=== PATIENT | male | born 1985 | race Caucasian/White ===

== ENCOUNTER 2018-04-05 07:55 | Day surgery (SDC) | payer BC ==
[2018-04-05] MEDS ORDERED: NS 1000 ML 1,000 ML ONE (07:57)
[2018-04-05] MEDS ORDERED: DIPRIVAN VIAL 20 ML ONE (08:23)
[2018-04-05 08:56] VITALS: BP 118/69
== END 2018-04-05 09:01 | disposition home or self-care (01) ==
LOC: SURG1 07:55
PROVIDERS: ATTEND Surgery
PROC: 0DJ08ZZ Inspection of Upper Intestinal Tract, Via Natural or Artificial Opening Endoscopic (ICD-10-PCS; principal; 2018-04-05 07:30)
PROC: 0DBP8ZX Excision of Rectum, Via Natural or Artificial Opening Endoscopic, Diagnostic (ICD-10-PCS; principal; 2018-04-05 07:30)
PROC: 0DB68ZX Excision of Stomach, Via Natural or Artificial Opening Endoscopic, Diagnostic (ICD-10-PCS; principal; 2018-04-05 07:30)
DX: K44.9 Diaphragmatic hernia without obstruction or gangrene (principal); K21.9 Gastro-esophageal reflux disease without esophagitis; R10.84 Generalized abdominal pain; R07.89 Other chest pain; K29.60 Other gastritis without bleeding
CPT/HCPCS: A4217; J3490

== ENCOUNTER → 2018-04-10 | Outpatient (CLI) | payer BC ==
[2018-04-05 08:56] VITALS: BP 118/69
--- NOTE | 2018-04-10 20:58 | US ---
HISTORY: Bloating, heartburn Study: Gallbladder ultrasound Comparison: None Technique: Multiple ho scale and color flow Doppler images of the right upper quadrant were obtaine d. Findings: The visualized portions of the liver is normal in echotexture and size. No focal intraparenchymal ma ss or intrahepatic biliary ductal dilatation can be observed. The gallbladder fails to demonstrate e vidence for cholelithiasis or layering sludge. The common bile duct is unremarkable measuring 3 mill imeters in width. No pericholecystic fluid or gallbladder wall thickening can be observed. Right kid man normal echotexture size and measures 10 cm in length. Visualized portions of the pancreas are unr emarkable IMPRESSION: 1. Unremarkable gallbladder ultrasound Reported By:
== END ==
LOC: RAD 14:43
PROVIDERS: ATTEND Surgery
DX: K21.9 Gastro-esophageal reflux disease without esophagitis (principal); K44.9 Diaphragmatic hernia without obstruction or gangrene
CPT/HCPCS: 76705